=== PATIENT | male | born 1955 | race Caucasian/White ===

== ENCOUNTER 2018-11-06 17:13 | Emergency (ER) | payer OTHER ==
[~2018-11-06] VITALS: Wt 63.0 kg
[2018-11-06] MEDS ORDERED: CEFTRIAXONE 1 GM/50 ML (PMX) 50 ML IVPB STA (17:58)
[2018-11-06] MEDS ORDERED: TRIMETHOPRIM/SULFAMETHOX (DS) TAB PO ONE (18:00)
[2018-11-06] MEDS ORDERED: IBUP-1542 PO (18:36)
[2018-11-06] MEDS ORDERED: SULF1TAB31 PO (18:36)
[2018-11-06] MEDS ORDERED: CEPH-443 PO (18:36)
--- NOTE | 2018-11-06 18:39 | ERD ---
ER Documentation Chief Complaint Chief Complaint right elbow pain HPI 63-year-old male presents with right elbow pain and redness for the last 3 days. Denies any history of trauma although he does do repetitive motion of the extremities for work. He denies any fevers, vomiting, shortness breath or chest pain. ROS All systems reviewed and are negative except as per history of present illness. Medications Home Meds Active Scripts Ibuprofen* (Motrin*) 600 Mg Tab, 600 MG PO Q6, #20 TAB Prov:ALBA HERNANDEZ MD 11/06/18 Sulfamethoxazole/Trimethoprim* (Bactrim Ds* Tablet) 1 Each Tablet, 1 TAB PO BID for 7 Days, #14 TAB Prov:ALBA HERNANDEZ MD 11/06/18 Cephalexin* (Keflex*) 500 Mg Capsule, 500 MG PO QID for 7 Days, CAP Prov:ALBA HERNANDEZ MD 11/06/18 Allergies Allergies: Coded Allergies: No Known Drug Allergies (Verified Allergy, Unknown, 11/06/18) PMhx/Soc Medical and Surgical Hx: pt denies Medical Hx, pt denies Surgical Hx FmHx Family History: No diabetes, No coronary disease, No other Physical Exam Vitals Vital Signs Date Temp Pulse Resp B/P (MAP) Pulse Ox O2 O2 Flow FiO2 Time Delivery Rate 11/06/18 98.4 59 18 147/79 96 Room Air 19:01 (101) 11/06/18 99.0 79 18 134/73 98 17:28 (93) Physical Exam Const: No acute distress Head: Atraumatic Eyes: Normal Conjunctiva ENT: Normal External Ears, Nose and Mouth. Neck: Full range of motion. No meningismus. Resp: Clear to auscultation bilaterally Cardio: Regular rate and rhythm, no murmurs Abd: Soft, non tender, non distended. Normal bowel sounds Skin: No petechiae or rashes Back: No midline or flank tenderness Ext: No cyanosis, or edema slight fluctuance and swelling of the right olecranon bursa. Surrounding warmth and redness. No effusion, restricted range of motion or weakness. Right upper extremity is neurovascular intact. Neur: Awake and alert Psych: Normal Mood and Affect Result Diagram: 11/06/182 11/06/181811 Results 24 hrs Laboratory Tests Test 11/06/18 18:12 White Blood Count 7.8 10^3/ul Red Blood Count 4.20 10^6/ul Hemoglobin 13.2 g/dl Hematocrit 38.5 % Mean Corpuscular Volume 91.7 fl Mean Corpuscular Hemoglobin 31.4 pg Mean Corpuscular Hemoglobin Concent 34.3 g/dl Red Cell Distribution Width 12.1 % Platelet Count 216 10^3/UL Mean Platelet Volume 10.2 fl Immature Granulocytes % 0.300 % Neutrophils % 63.8 % Lymphocytes % 23.0 % Monocytes % 11.5 % Eosinophils % 1.0 % Basophils % 0.4 % Nucleated Red Blood Cells % 0.0 /100WBC Immature Granulocytes # 0.020 10^3/ul Neutrophils # 5.0 10^3/ul Lymphocytes # 1.8 10^3/ul Monocytes # 0.9 10^3/ul Eosinophils # 0.1 10^3/ul Basophils # 0.0 10^3/ul Nucleated Red Blood Cells # 0.0 10^3/ul Sodium Level 141 mmol/L Potassium Level 4.1 mmol/L Chloride Level 108 mmol/L Carbon Dioxide Level 24 mmol/L Anion Gap 9 Blood Urea Nitrogen 18 mg/dl Creatinine 0.88 mg/dl Est Glomerular Filtrat Rate mL/min > 60 mL/min Glucose Level 99 mg/dl Calcium Level 9.0 mg/dl Current Medications Medications Dose Sig/Jeri Start Time Status Last (Trade) Ordered Route PRN Stop Time Admin Dose Reason Admin Ceftriaxone 50 ml @ ONCE STAT 11/06/18 DC 11/06/18 Sodium 100 mls/hr IVPB 17:58 18:14 11/06/18 18:27 1 tab ONCE ONCE 11/06/18 DC 11/06/18 Trimethoprim/ PO 18:00 18:14 11/06/18 18:01 Sulfamethoxaz ole (Bactrim (Ds)) Procedures/MDM Symptoms right elbow olecranon bursitis and cellulitis Procedure note- Elbow was prepped with Betadine. 1 cc lidocaine was used for local infiltration. Approximate 1 cc of possibly purulent or tophaceous material was aspirated. Fluid was sent for culture. Patient had a CBC which shows no leukocytosis. There is minimal anemia. Patient was given Rocephin 1 g IV, Bactrim double strength by mouth. Patient was given ibuprofen for pain. Patient presents with right elbow olecranon bursitis without signs of septic arthritis, ischemia, deficits, sepsis. X-ray Elbow 3V Interpreted by me: Fat Pads: Normal Bones: No fracture Joints: No dislocation Foreign body: None. Impression-degenerative changes of right olecranon with exostosis. Patient will be discharged home with a prescription ibuprofen, Keflex, Bactrim and recommendations for return precautions next 2 days for worsening redness, fevers, new worsening symptoms with primary care doctor. The patient was stable with no new complaints during the ER course. Clinically, there is no current evidence to suggest meningitis, sepsis, acute abdomen, pneumonia, stroke, acute coronary syndrome, pulmonary embolism, aortic dissection or any other emergent condition appearing to require further evaluation or hospitalization. Patient counseled regarding my diagnostic impression and care plan. Prior to discharge all questions answered. Pt agrees with treatment plan and understands strict return precautions. Pt is instructed to follow up with primary care provider within 24-48 hours. Precautionary instructions provided including instructions to return to the ER if not improving or for any worsening or changing symptoms or concerns. Disclaimer: Inadvertent spelling and grammatical errors are likely due to EHR/dictation software use and do not reflect on the overall quality of patient care. Also, please note that the electronic time recorded on this note does not necessarily reflect the actual time of the patient encounter. Departure Diagnosis: Primary Impression: Olecranon bursitis Laterality: right Qualified Codes: M70.21 - Olecranon bursitis, right elbow Condition: Stable Patient Instructions: Bursitis, Elbow (Olecranon) Additional Instructions: Cheque otro vez con nichols doctor primario en el [place]o [place] or regresa para mas o nueva simptomas. ALBA HERNANDEZ MD November 06, 2018 18:39
[2018-11-06 19:01] VITALS: BP 147/79; PULSE 59; RESP 18
== END 2018-11-06 19:09 | disposition home or self-care (01) ==
LOC: FTE 17:13
DX: M70.21 Olecranon bursitis, right elbow (principal); Y93.9 Activity, unspecified
CPT/HCPCS: 36415; 73080; 80048; 85025; 87070; 96374; J0696; Z7502; Z7610